=== PATIENT | female | born 1995 | race Caucasian/White ===

== ENCOUNTER 2018-05-09 16:21 | Inpatient (IN) | payer OTHER ==
[2018-05-09] MEDS ORDERED: PROMETHAZINE INJ 25 MG/ML VIAL (J2550) As Ordered (18:03)
[2018-05-09] MEDS: LR 1,000 ML IV (18:09)
[2018-05-09] MEDS: LACTATED RINGER'S 1000 ML IV (18:09)
[2018-05-09] MEDS: PROMETHAZINE INJ 25 MG/ML VIAL (J2550) IV (18:18)
[2018-05-09] MEDS ORDERED: OXYTOCIN 30 UNITS IN 0.9% NaCl 500ML IV BAG (J2590) As Ordered (18:33)
[2018-05-09 18:40] LABS: HEMATOCRIT 41.2 % (36.0-47.0); HEMOGLOBIN 14.1 g/dl (12.0-15.5); MEAN CORPUSCULAR HEMOGLOBIN 29.9 pg (27.0-33.0); MEAN CORPUSCULAR HGB CONC 34.2 g/dl (32.0-36.5); MEAN CORPUSCULAR VOLUME 87.5 fl (80.0-96.0); PLATELET COUNT, AUTOMATED 212 10^3/uL (150-450); RED BLOOD COUNT 4.71 10^6/uL (4.00-5.40); RED CELL DISTRIBUTION WIDTH 13.5 % (11.5-14.5); WHITE BLOOD COUNT 18.8 10^3/uL (4.0-10.0)
[2018-05-09 18:56] LABS: AMPHETAMINES URINE REFLEX NEGATIVE (NEGATIVE); BARBITURATES URINE REFLEX NEGATIVE (NEGATIVE); BENZODIAZEPINES URINE REFLEX NEGATIVE (NEGATIVE); CANNABINOIDS URINE REFLEX NEGATIVE (NEGATIVE); COCAINE METABOLITE URINE REFLE NEGATIVE (NEGATIVE); METHADONE URINE REFLEX NEGATIVE (NEGATIVE); OPIATES URINE REFLEX NEGATIVE (NEGATIVE); PHENCYCLIDINE URINE REFLEX NEGATIVE (NEGATIVE)
[2018-05-09 19:17] LABS: CORD GAS ABE V -5.2; CORD GAS HCO3 V 19.9 MEQ/L; CORD GAS O2 SAT V 81.5 %; CORD GAS PCO2 V 37.9 mmHg; CORD GAS PH V 7.339 UNITS; CORD GAS PO2 V 38.1 mmHg; CORD GAS SBC V 19.9 MEQ/L; CORD GAS TCO2 V 21.1 MEQ/L
[2018-05-09] MEDS ORDERED: MOM 30ML SUSPENSION UDC PO (19:30)
[2018-05-09] MEDS ORDERED: METHYLERGONOVINE MALEATE 0.2 MG TAB PO (19:30)
[2018-05-09] MEDS ORDERED: METOCLOPRAMIDE INJ 10MG/2ML VIAL (J2765) IV (19:30)
[2018-05-09] MEDS ORDERED: MEASLES,MUMPS,RUBELLA VACCINE INJ (MMR-II) (90707) SC (19:30)
[2018-05-09] MEDS ORDERED: PROMETHAZINE 25 MG TAB PO (19:30)
[2018-05-09] MEDS ORDERED: LIDOCAINE 1% MDV 20ML VIAL As Ordered (20:25)
[2018-05-09] MEDS: IBUPROFEN 800 MG TAB PO (20:41)
[2018-05-09] MEDS: DIBUCAINE 1% OINTMENT 30GM TOP (21:47)
[2018-05-09] MEDS: DOCUSATE SODIUM 100 MG CAP PO (21:47)
[2018-05-09] MEDS: ACETAMINOPHEN 500 MG TAB PO (21:48)
[2018-05-10] MEDS: LR 1,000 ML IV (00:02)
[2018-05-10] MEDS: IBUPROFEN 800 MG TAB PO ×2 (09:29→21:19)
[2018-05-10] MEDS: PRENATAL VITAMINS CHEWABLE TABLET PO (09:29)
[2018-05-10] MEDS: ACETAMINOPHEN 500 MG TAB PO (16:21)
[2018-05-10] MEDS: DIBUCAINE 1% OINTMENT 30GM TOP (18:24)
[2018-05-11 09:06] LABS: FETAL SCREEN PROF. 1 1
[2018-05-11] MEDS: PRENATAL VITAMINS CHEWABLE TABLET PO (09:19)
[2018-05-11] MEDS: RHOGAM 300 MCG (1500 IU) INJ (J2790) IM (09:20)
== END 2018-05-11 11:08 | disposition home or self-care (01) | DRG 775 ==
LOC: M LDI 16:21 → M OBS 21:25
PROVIDERS: Emergency Medicine Pediatric Emergency Medicine; Student in an Organized Health Care Education/Training Program
PROC: 10E0XZZ Delivery of Products of Conception, External Approach (ICD-10-PCS; principal; 2018-05-09)
PROC: 0HQ9XZZ Repair Perineum Skin, External Approach (ICD-10-PCS; 2018-05-09)
DX: O48.0 Post-term pregnancy (principal); O69.81X0 Labor and delivery complicated by cord around neck, without compression, not applicable or unspecified; O70.0 First degree perineal laceration during delivery; Z3A.41 41 weeks gestation of pregnancy; Z37.0 Single live birth

== ENCOUNTER 2018-07-17 18:49 | Inpatient (IN) | payer OTHER ==
[2018-07-17 20:26] LABS: BASO % 0.3 % (0.0-1.0); EOS # 0.1 10^3/uL (0.0-0.50); EOS % 0.8 % (0.0-3.0); HEMATOCRIT 43.5 % (36.0-47.0); HEMOGLOBIN 14.6 g/dl (12.0-15.5); IMMATURE GRANULOCYTE % 0.3 % (0-3.0); LYMPH % 11.4 % (24.0-44.0); MEAN CORPUSCULAR HEMOGLOBIN 29.4 pg (27.0-33.0); MEAN CORPUSCULAR HGB CONC 33.6 g/dl (32.0-36.5); MEAN CORPUSCULAR VOLUME 87.7 fl (80.0-96.0); MONO # 0.7 10^3/uL (0.0-0.8); NEUTROPHILS # 7.1 10^3/uL (1.8-7.7); NEUTROPHILS % 79.2 % (36.0-66.0); PLATELET COUNT, AUTOMATED 300 10^3/uL (150-450); RED BLOOD COUNT 4.96 10^6/uL (4.00-5.40); RED CELL DISTRIBUTION WIDTH 12.3 % (11.5-14.5)
[2018-07-17] MEDS: NS 1,000 ML IV (20:29)
[2018-07-17 20:42] LABS: KETONE, URINE AUTO RFX NEGATIVE (NEGATIVE); LEUKOCYTE ESTERASE UR AUTO RFX NEGATIVE (NEGATIVE); MUCUS, URINE RFX SMALL (NEGATIVE); NITRITE, URINE AUTO RFX NEGATIVE (NEGATIVE); RBC, URINE AUTO RFX 1 /HPF (0-3); SPECIFIC GRAVITY UR AUTO RFX 1.011 (1.002-1.035); SQUAM EPITHELIAL CELL UR AURFX 3 /HPF (0-6); WBC, URINE AUTO RFX 3 /HPF (0-3)
[2018-07-17 20:50] LABS: ALBUMIN 3.4 GM/DL (3.2-5.2); ALBUMIN/GLOBULIN RATIO 0.97 (1.00-1.93); ALKALINE PHOSPHATASE 472 U/L (45-117); ALT/SGPT 570 U/L (12-78); AMYLASE 543 U/L (25-115); ANION GAP 8 MEQ/L (8-16); AST/SGOT 589 U/L (7-37); BILIRUBIN,TOTAL 1.7 MG/DL (0.2-1.0); BLOOD UREA NITROGEN 6 MG/DL (7-18); CALCIUM LEVEL 9.1 MG/DL (8.5-10.1); CARBON DIOXIDE LEVEL 28 MEQ/L (21-32); CHLORIDE LEVEL 109 MEQ/L (98-107); CREATININE FOR GFR 0.63 MG/DL (0.55-1.30); GLUCOSE, FASTING 91 MG/DL (70-100); LIPASE 7999 U/L (73-393); POTASSIUM SERUM 3.8 MEQ/L (3.5-5.1); SODIUM LEVEL 145 MEQ/L (136-145); TOTAL PROTEIN 6.9 GM/DL (6.4-8.2)
[2018-07-17 20:57] LABS: CONTROL LINE HCG INT CTR LINE PRESENT; HCG, SERUM QUALITATIVE NEGATIVE (NEGATIVE)
[2018-07-17] MEDS ORDERED: ISOVUE-370 76% 100ML VIAL (Q9967) As Ordered (21:24)
[2018-07-17] MEDS: LR 1,000 ML IV (23:35)
[2018-07-17] MEDS ORDERED: ONDANSETRON 4MG/2ML VIAL (J2405) IV (23:45)
[2018-07-17] MEDS ORDERED: ACETAMINOPHEN TAB 650MG DOSE (2X325MG) PO (23:45)
[2018-07-18 07:05] LABS: BASO % 0.6 % (0.0-1.0); EOS # 0.1 10^3/uL (0.0-0.50); EOS % 1.8 % (0.0-3.0); HEMATOCRIT 43.6 % (36.0-47.0); HEMOGLOBIN 14.8 g/dl (12.0-15.5); IMMATURE GRANULOCYTE % 0.3 % (0-3.0); LYMPH # 2.5 10^3/uL (1.5-6.5); LYMPH % 36.7 % (24.0-44.0); MEAN CORPUSCULAR HEMOGLOBIN 29.5 pg (27.0-33.0); MEAN CORPUSCULAR HGB CONC 33.9 g/dl (32.0-36.5); MEAN CORPUSCULAR VOLUME 86.9 fl (80.0-96.0); MONO # 0.6 10^3/uL (0.0-0.8); MONO % 9.3 % (0.0-5.0); NEUTROPHILS # 3.4 10^3/uL (1.8-7.7); NEUTROPHILS % 51.3 % (36.0-66.0); PLATELET COUNT, AUTOMATED 335 10^3/uL (150-450); RED BLOOD COUNT 5.02 10^6/uL (4.00-5.40); RED CELL DISTRIBUTION WIDTH 12.7 % (11.5-14.5); WHITE BLOOD COUNT 6.7 10^3/uL (4.0-10.0)
[2018-07-18 07:20] LABS: ALBUMIN 3.3 GM/DL (3.2-5.2); ALKALINE PHOSPHATASE 440 U/L (45-117); ALT/SGPT 682 U/L (12-78); AST/SGOT 503 U/L (7-37); BILIRUBIN,DIRECT 0.5 MG/DL (0.0-0.2); BILIRUBIN,TOTAL 1.3 MG/DL (0.2-1.0); LIPASE 439 U/L (73-393); TOTAL PROTEIN 7.4 GM/DL (6.4-8.2)
[2018-07-18] MEDS: LR 1,000 ML IV ×2 (10:25→19:35)
[2018-07-19 07:49] LABS: ALBUMIN/GLOBULIN RATIO 0.88 (1.00-1.93); ALKALINE PHOSPHATASE 355 U/L (45-117); ALT/SGPT 470 U/L (12-78); ANION GAP 10 MEQ/L (8-16); AST/SGOT 180 U/L (7-37); BILIRUBIN,TOTAL 1.7 MG/DL (0.2-1.0); BLOOD UREA NITROGEN 4 MG/DL (7-18); CALCIUM LEVEL 8.9 MG/DL (8.5-10.1); CARBON DIOXIDE LEVEL 27 MEQ/L (21-32); CHLORIDE LEVEL 109 MEQ/L (98-107); CREATININE FOR GFR 0.53 MG/DL (0.55-1.30); GLUCOSE, FASTING 73 MG/DL (70-100); LIPASE 109 U/L (73-393); POTASSIUM SERUM 3.6 MEQ/L (3.5-5.1); SODIUM LEVEL 146 MEQ/L (136-145); TOTAL PROTEIN 6.4 GM/DL (6.4-8.2)
[2018-07-20] MEDS: LR 1,000 ML IV ×2 (08:16→16:37)
[2018-07-20 08:19] LABS: ALBUMIN/GLOBULIN RATIO 0.77 (1.00-1.93); ALKALINE PHOSPHATASE 295 U/L (45-117); ALT/SGPT 311 U/L (12-78); ANION GAP 8 MEQ/L (8-16); AST/SGOT 66 U/L (7-37); BILIRUBIN,TOTAL 1.6 MG/DL (0.2-1.0); BLOOD UREA NITROGEN 3 MG/DL (7-18); CARBON DIOXIDE LEVEL 28 MEQ/L (21-32); CHLORIDE LEVEL 109 MEQ/L (98-107); CREATININE FOR GFR 0.63 MG/DL (0.55-1.30); GLUCOSE, FASTING 87 MG/DL (70-100); POTASSIUM SERUM 3.5 MEQ/L (3.5-5.1); SODIUM LEVEL 145 MEQ/L (136-145); TOTAL PROTEIN 6.9 GM/DL (6.4-8.2)
[2018-07-20] MEDS ORDERED: ONDANSETRON 4MG/2ML VIAL (J2405) As Ordered (11:48)
[2018-07-20] MEDS ORDERED: ROCURONIUM BROMIDE 50 MG/5 ML VIAL As Ordered (11:48)
[2018-07-20] MEDS ORDERED: KETOROLAC 60 MG/2 ML VIAL (J1885) As Ordered (11:48)
[2018-07-20] MEDS ORDERED: LIDOCAINE 2% INJ 100 MG/5 ML SDV (FOR ANES.) As Ordered (11:48)
[2018-07-20] MEDS ORDERED: fentaNYL 100 MCG/2 ML INJECTION (J3010) As Ordered ×3 (11:48→17:42)
[2018-07-20] MEDS ORDERED: NEOSTIGMINE 10 MG/10 ML VIAL (J2710) As Ordered (11:48)
[2018-07-20] MEDS ORDERED: PROPOFOL 200 MG/20 ML VIAL As Ordered (11:48)
[2018-07-20] MEDS ORDERED: GLYCOPYRROLATE INJ 0.2 MG/ML 2 ML VIAL As Ordered (11:48)
[2018-07-20] MEDS ORDERED: dexameTHASONE 4 MG/ML 1ML VIAL (J1100) As Ordered (11:48)
[2018-07-20] MEDS ORDERED: HYDROmorphone HCL 2 MG/ML 1ML VIAL (J1170) As Ordered (11:48)
[2018-07-20] MEDS ORDERED: MIDAZOLAM INJ 2 MG/2 ML VIAL (J2250) As Ordered (11:48)
[2018-07-20] MEDS: BUPIVACAINE HCL 0.25% 30 ML VIAL As Ordered (14:17)
[2018-07-20] MEDS: CONRAY-60 60% 50ML VIAL (Q9961) As Ordered (15:38)
[2018-07-20] MEDS: fentaNYL 100 MCG/2 ML INJECTION (J3010) IV ×7 (17:14→18:00)
[2018-07-20] MEDS ORDERED: ONDANSETRON 4MG/2ML VIAL (J2405) IV (17:15)
[2018-07-20] MEDS ORDERED: METOCLOPRAMIDE INJ 10MG/2ML VIAL (J2765) IV (17:15)
[2018-07-20] MEDS ORDERED: MEPERIDINE INJ 25 MG/ML VIAL (J2175) IV (17:15)
[2018-07-20] MEDS ORDERED: PERCOCET 5MG/325MG TAB As Ordered ×2 (17:40→18:21)
[2018-07-20] MEDS: PERCOCET 5MG/325MG TAB PO ×2 (17:41→18:25)
[2018-07-20] MEDS ORDERED: METOCLOPRAMIDE INJ 10MG/2ML VIAL (J2765) As Ordered (17:51)
[2018-07-20] MEDS: MORPHINE 4 MG/ML 1ML VIAL/SYRINGE (J2270) IV (18:55)
[2018-07-20] MEDS: NORCO, ANEXSIA 5/325MG TABLET (HYDROcodone/ACETAMINOPHEN) PO (21:36)
[2018-07-21] MEDS: NORCO, ANEXSIA 5/325MG TABLET (HYDROcodone/ACETAMINOPHEN) PO ×3 (03:41→13:20)
[2018-07-21] MEDS: PRENATAL VITAMINS CHEWABLE TABLET PO ×2 (08:03→08:04)
[2018-07-21] MEDS: LR 1,000 ML IV ×2 (11:37→11:38)
== END 2018-07-21 14:55 | disposition home or self-care (01) | DRG 417 ==
LOC: M PED 07-18 00:48 → M ED 18:49 → M ED INP 23:35 → M PED 07-18 15:03
PROC: 0FT44ZZ Resection of Gallbladder, Percutaneous Endoscopic Approach (ICD-10-PCS; principal; 2018-07-20 13:03)
DX: K80.00 Calculus of gallbladder with acute cholecystitis without obstruction (principal); K85.10 Biliary acute pancreatitis without necrosis or infection